=== PATIENT | male | born 1985 | race Caucasian/White ===

== ENCOUNTER 2024-09-15 11:04 | Emergency (ER) | payer OTHER, SELFPAY ==
[2024-09-15 11:06] VITALS: BP 127/80; PULSE 87; RESP 18; TEMP 36.6; O2SAT 100; BMI 26.5
--- NOTE | 2024-09-15 11:13 | ED_ITS ---
HPI - General Adult General Chief complaint: Abdominal Pain Stated complaint: Abdominal pain Time Seen by Provider: 09/15/24 11:05 History of Present Illness HPI narrative: Patient presents to the emergency department complaining of right sided abdominal pain. This started with some fatigue last night. Patient has been working a lot recently and is unsure if he is really sore or if there is another issue. No issues with bowel movements or urinating. Denies any history of any abdominal surgery. 39-year-old man presenting to the emergency department with concern of abdominal pain. Does physical work installing fences, horse paddocks. Yesterday evening was rather fatigued and then began to be achy all over. Thought maybe was related to more intense work has been doing lately. Than this morning increasing abdominal pain. Became rather severe. Was apparently restless in pain. There was some nausea but has not vomited. Indicates by gesture pain in the right upper abdomen but does admit that it was somewhat generalized. Denies constipation noting ?that is never been a problem with me ?with continuing what I take to understand at a minimum daily bowel movements. Pain then seemed to go into his chest. He was crying and screaming with the abdominal pain. Spouse thought maybe he was panicking to some degree in gave half of 1 of her lorazepam tablets. Since arrival to the emergency department things have settled down. Does not report any difficulty with urinating or hematuria. Did have a normal urine out this morning. No fevers been measured. Hit thought that maybe he was developing ?the flu? last night. Related Data Home Medications ?Medication ?Instructions ?Recorded ?Confirmed No Known Home Medications 09/15/24 09/15/24 Allergies Allergy/AdvReac Type Severity Reaction Status Date / Time No Known Drug Allergies Allergy Verified 09/15/24 11:12 Review of Systems Status of ROS: Reports: 6 or more systems reviewed and unremarkable except as noted in History and below Exam Narrative: Exam Narrative: Lying flat on bed. NAD. Easily conversant. Skin is warm and dry. Cheeks are flushed as if exposure/when burn. Skin otherwise warm and dry. Heart in regular rate and rhythm. Lungs appear to be clear per Oropharynx is sticky. Abdomen is soft and nontender. Active bowel sounds. Extremities are well perfused. Is without edema. Const: Vital Signs, click to edit/add: Vital Signs - 24 hr 09/15/24 14:35 Temperature 97.7 F Pulse Rate [Right Pulse Oximeter] 101 H Respiratory Rate 20 Blood Pressure [Ri ght Upper Arm] 146/89 H Pulse Oximetry 98 Documenting provider has reviewed patient's vital signs: yes Course Vital Signs Vital signs: Initial Vital Signs Temperature 97.9 F 09/15/24 11:06 Temperature Source Temporal Artery Scan 09/15/24 11:06 Pulse Rate 87 09/15/24 11:06 Pulse Rhythm Regular 09/15/24 11:06 Pulse Strength 3+ Normal 09/15/24 11:06 Respiratory Rate 18 09/15/24 11:06 Blood Pressure 127/80 09/15/24 11:06 Blood Pressure Mean 95 09/15/24 11:06 Blood Pressure Position Sitting 09/15/24 11:06 Pulse Oximetry 100 09/15/24 11:06 Oxygen Delivery Method Room Air 09/15/24 11:06 Vital Signs Temperature 97.9 F 09/15/24 11:06 Pulse Rate 87 09/15/24 11:06 Respiratory Rate 18 09/15/24 11:06 Blood Pressure 127/80 09/15/24 11:06 Pulse Oximetry 100 09/15/24 11:06 Oxygen Delivery Method Room Air 09/15/24 11:06 Temperature 97.7 F 09/15/24 14:35 Pulse Rate 101 H 09/15/24 14:35 Respiratory Rate 20 09/15/24 14:35 Blood Pressure 146/89 H 09/15/24 14:35 Pulse Oximetry 98 09/15/24 14:35 Oxygen Delivery Method Room Air 09/15/24 11:06 Medical Decision Making MDM Narrative Medical decision making narrative: I wonder if this might have been more generalized gas pain. He keeps indicating the right upper quadrant and while he would be unlikely to have gallbladder disease certainly possible. Could have rolled a stone I suppose. Discussed just checking for what I suspect is an underlying influenza-like illness as well. Now with a benign belly. Spouse indicates concern and would like further lab work which I am not disagreement with. Perhaps this will direct further imaging. Does not feel he needs any intervention for pain or nausea. Transaminases do return elevated. With location of pain is described did request limited ultrasound. Normal white count. And normal lipase I also go to discuss with him alcohol consumption. Did have a couple of liquor drinks last night. I suppose this could be contributing to the transaminase elevation. Initial conversation during exam with produce production team member noting dilated common bile duct of 8 mm Radiology over-read below INDICATION: Right upper quadrant abdomen pain. Elevated transaminases. TECHNIQUE: Ultrasound abdomen limited. Sonographic images of the right upper quadrant were obtained using curtis-scale and color Doppler images. COMPARISON: None. FINDINGS: Liver: The liver is normal in size (15 cm) with mild heterogeneous parenchyma. There is studies [place] appearance with diffuse periportal increased echogenicity, which can be seen with periportal edema. Echogenicity. No concerning intrahepatic mass. Mild prominence of the intrahepatic biliary ducts are seen. Hepatopetal flow of main portal vein is present. Gallbladder: Sludge is identified within the gallbladder. No pericholecystic fluid or edematous wall thickening. Gallbladder wall thickness measures 2 millimeter. There is dilatation of common bile duct measuring 8 mm. Pretty`s sign is negative at the time of ultrasonographic exam. Pancreas: Pancreas is partially visualized secondary to bowel gas. Pancreatic tail is obscured. No pancreatic duct dilatation no concerning mass. Vasculature: Patent IVC. Included abdominal aorta is of normal caliber. Right kidney measures 11.3 x 6.6 centimeter. Preserved vascularity. No hydronephrosis. IMPRESSION: 1. No findings of acute cholecystitis. Dilatation of common bile duct and prominence of the intrahepatic bile duct, correlate with liver function tests to exclude distal biliary obstruction. For continued clinical concern, consider further assessment with MRCP. 2. Slightly heterogeneous liver parenchyma with starry my appearance and diffuse periportal edema, findings are nonspecific and can be seen with hepatitis, volume overload, diffuse neoplastic infiltration, fasting liver amongst other etiology. Did discuss with General surgery considering size the common bile duct recommending MRCP. On reexamination is not having localizing pain maybe a little uncomfortable around the right upper quadrant after the ultrasound I think. Rechecking vitals. Discussed all findings with Mr. Hernandez and abimbola valdes. Preference is to go home rather than wait a few hours for MRCP until MRI is available at this point. Pending MRCP might need CT imaging See patient discharge plan for further discussion As discussed, we do not know the significance of the findings in your labs or the dilatation of your common bile duct right now. Please return for localizing and marked increase in abdominal pain, associated fever. In lieu of further imaging/evaluation today, please follow-up with your primary care provider, ideally within the coming week, to pursue these findings further. Prescribing Zofran for nausea from [facility]. Focus on hydration. Lab Data Lab results reviewed: Yes I reviewed the patient's lab results Labs: Lab Results 09/15/24 09/15/24 09/15/24 Range/Units 11:44 11:45 11:52 WBC 10.78 (4.50-11.00) K/uL RBC 4.74 (4.30-5.90) m/uL Hgb 13.7 (13.5-17.5) gm/dL Hct 41.7 (37.0-53.0) % MCV 88 (80-100) fL MCH 29 (26-34) pg MCHC 33 (32-36) gm/dL RDW Coeff of Krystina 12.4 (11.5-15.5) % Plt Count 224 (140-440) K/uL Neut % (Auto) 85.0 H (42.0-72.0) % Lymph % (Auto) 6.0 L (20-44) % Granite % (Auto) 8.1 (0.0-11.0) % Eos % (Auto) 0.6 (0.0-7.0) % Baso % (Auto) 0.2 (0.0-3.0) % Neut # (Auto) 9.20 H (1.7-7.0) K/uL Lymph # (Auto) 0.60 L (0.90-2.90) K/uL Granite # (Auto) 0.90 (0.00-0.90) K/UL Eos # (Auto) 0.07 (0.00-0.50) K/uL Baso # (Auto) 0.02 (0.00-0.30) K/uL Abs Immat Gran (auto) 0.01 (0.00-0.30) K/uL Imm/Tot Granulo (auto) 0.1 % Sodium 140 (135-149) mmol/L Potassium 3.8 (3.6-5.1) mmol/L Chloride 106 (96-114) mmol/L Carbon Dioxide 26 (20-32) mmol/L Anion Gap 8 (7-15) mEq/L BUN 26 H (5-24) mg/dL Creatinine 0.8 (0.5-1.5) mg/dL Estimated Creat Clear 125.47 Estimated GFR 114 ml/min Glucose 87 (60-115) mg/dL Calcium 9.2 (8.4-10.6) mg/dL Total Bilirubin 0.4 (0.1-1.5) mg/dL Direct Bilirubin 0.2 (0.0-0.5) mg/dL AST 92 H (12-35) U/L ALT 52 H (4-50) U/L Alkaline Phosphatase 94 (40-150) U/L Troponin I < 0.01 L (0.01-0.04) ng/mL Total Protein 6.6 (6.0-8.3) g/dL Albumin 4.5 (3.3-5.0) g/dL Lipase 74 (23-300) U/L Urine Color Yellow (Yellow) Urine Appearance Clear (Clear) Urine pH 7.0 (5.0-8.5) Ur Specific Hilbert 1.015 (1.000-1.030) Urine Protein Trace A (Negative) Urine Glucose (UA) Negative (Negative) Urine Ketones Trace A (Negative) Urine Blood Negative (Negative) Urine Nitrite Negative (Negative) Urine Bilirubin Negative (Negative) Urine Urobilinogen 0.2 (0.2-1.0) Ur Leukocyte Esterase Negative (Negative) Urine RBC 0-2 (0-2) Urine WBC 0-2 (0-5) Ur Squamous Epith Cells None (None-Few) Urine Bacteria None (None) SARS-CoV-2 (PCR) Negative SARS-CoV-2 (Negative) Influenza Type A (PCR) Negative PCR FLU A (Negative) Influenza Type B (PCR) Negative PCR FLU B (Negative) RSV (PCR) Negative PCR RSV (Negative) Lab Acknowledgement 09/15/24 Range/Units 12:39 WBC (4.50-11.00) K/uL RBC (4.30-5.90) m/uL Hgb (13.5-17.5) gm/dL Hct (37.0-53.0) % MCV (80-100) fL MCH (26-34) pg MCHC (32-36) gm/dL RDW Coeff of Krystina (11.5-15.5) % Plt Count (140-440) K/uL Neut % (Auto) (42.0-72.0) % Lymph % (Auto) (20-44) % Granite % (Auto) (0.0-11.0) % Eos % (Auto) (0.0-7.0) % Baso % (Auto) (0.0-3.0) % Neut # (Auto) (1.7-7.0) K/uL Lymph # (Auto) (0.90-2.90) K/uL Granite # (Auto) (0.00-0.90) K/UL Eos # (Auto) (0.00-0.50) K/uL Baso # (Auto) (0.00-0.30) K/uL Abs Immat Gran (auto) (0.00-0.30) K/uL Imm/Tot Granulo (auto) % Sodium (135-149) mmol/L Potassium (3.6-5.1) mmol/L Chloride (96-114) mmol/L Carbon Dioxide (20-32) mmol/L Anion Gap (7-15) mEq/L BUN (5-24) mg/dL Creatinine (0.5-1.5) mg/dL Estimated Creat Clear Estimated GFR ml/min Glucose (60-115) mg/dL Calcium (8.4-10.6) mg/dL Total Bilirubin (0.1-1.5) mg/dL Direct Bilirubin (0.0-0.5) mg/dL AST (12-35) U/L ALT (4-50) U/L Alkaline Phosphatase (40-150) U/L Troponin I (0.01-0.04) ng/mL Total Protein (6.0-8.3) g/dL Albumin (3.3-5.0) g/dL Lipase (23-300) U/L Urine Color (Yellow) Urine Appearance (Clear) Urine pH (5.0-8.5) Ur Specific Hilbert (1.000-1.030) Urine Protein (Negative) Urine Glucose (UA) (Negative) Urine Ketones (Negative) Urine Blood (Negative) Urine Nitrite (Negative) Urine Bilirubin (Negative) Urine Urobilinogen (0.2-1.0) Ur Leukocyte Esterase (Negative) Urine RBC (0-2) Urine WBC (0-5) Ur Squamous Epith Cells (None-Few) Urine Bacteria (None) SARS-CoV-2 (PCR) (Negative) Influenza Type A (PCR) (Negative) Influenza Type B (PCR) (Negative) RSV (PCR) (Negative) Lab Acknowledgement Test Added Discharge Plan Discharge Clinical Impression: Malaise and fatigue, Abdominal pain, Common bile duct dilatation Patient Disposition: Home w/ Parent or Adult Condition: Stable Additional Instructions: As discussed, we do not know the significance of the findings in your labs or the dilatation of your common bile duct right now. Please return for localizing and marked increase in abdominal pain, associated fever. In lieu of further imaging/evaluation today, please follow-up with your primary care provider, ideally within the coming week, to pursue these findings further. Prescribing Zofran for nausea from [facility]. Focus on hydration. Prescriptions: No Action No Known Home Medications Follow Up/Referrals: Provider,Not a Local [Primary Care Provider] - Stand Alone Forms: [facility] [employer] Info Instructions
[2024-09-15 11:58] LABS: Appearance Urine Clear (Clear); Bilirubin Urine Negative (Negative); Blood Urine Negative (Negative); Color Urine Yellow (Yellow); Glucose Urine Negative (Negative); Ketones Urine Trace (Negative); Leukocyte Esterase Urine Negative (Negative); Nitrite Urine Negative (Negative); Protein Urine Trace (Negative); Specific Gravity Urine 1.015 (1.000-1.030); Urobilinogen Urine 0.2 (0.2-1.0)
[2024-09-15 12:07] LABS: RBC Urine 0-2 (0-2); WBC Urine 0-2 (0-5)
[2024-09-15 12:09] LABS: Basophils Absolute Auto 0.02 K/uL (0.00-0.30); Basophils Percent Auto 0.2 % (0.0-3.0); Eosinophils Absolute Auto 0.07 K/uL (0.00-0.50); Eosinophils Percent Auto 0.6 % (0.0-7.0); Hematocrit 41.7 % (37.0-53.0); Hemoglobin* 13.7 gm/dL (13.5-17.5); Immature Granulocytes Abs Auto 0.01 K/uL (0.00-0.30); Immature Granulocytes Pct Auto 0.1 %; Mean Corpuscular HGB Conc 33 gm/dL (32-36); Mean Corpuscular Hemoglobin 29 pg (26-34); Mean Corpuscular Volume 88 fL (80-100); Monocytes Percent Auto 8.1 % (0.0-11.0); Platelet Count* 224 K/uL (140-440); RDW Coefficient of Variation % 12.4 % (11.5-15.5); Red Blood Count 4.74 m/uL (4.30-5.90); White Blood Count* 10.78 K/uL (4.50-11.00)
[2024-09-15 12:14] LABS: Slide Review Reflex No
[2024-09-15 12:15] LABS: Albumin* 4.5 g/dL (3.3-5.0); Chloride* 106 mmol/L (96-114)
[2024-09-15 12:16] LABS: Potassium* 3.8 mmol/L (3.6-5.1); Sodium* 140 mmol/L (135-149)
[2024-09-15 12:18] LABS: Alkaline Phosphatase* 94 U/L (40-150); Anion Gap 8 mEq/L (7-15); Aspartate Amino Transferase* 92 U/L (12-35); Bilirubin Direct* 0.2 mg/dL (0.0-0.5); Bilirubin Total* 0.4 mg/dL (0.1-1.5); Blood Urea Nitrogen* 26 mg/dL (5-24); Carbon Dioxide* 26 mmol/L (20-32); Creatinine* 0.8 mg/dL (0.5-1.5); Est. Creatinine Clearance* 125.47; Estimated Glomerular Filt Rate 114 ml/min; Total Protein* 6.6 g/dL (6.0-8.3)
[2024-09-15 12:19] LABS: Alanine Aminotransferase* 52 U/L (4-50); Calcium* 9.2 mg/dL (8.4-10.6); Glucose* 87 mg/dL (60-115)
[2024-09-15 12:32] LABS: Troponin I* < 0.01 ng/mL (0.01-0.04)
--- NOTE | 2024-09-15 12:34 | CRLHL7_ITS ---
For Patients: As a result of the Century Cures Act, medical imaging exams and procedure reports are released immediately into your electronic medical record. You may view this report before your referring provider. If you have questions, please contact your health care provider. INDICATION: Right upper quadrant abdomen pain. Elevated transaminases. TECHNIQUE: Ultrasound abdomen limited. Sonographic images of the right upper quadrant were obtained using cutris-scale and color Doppler images. COMPARISON: None. FINDINGS: Liver: The liver is normal in size (15 cm) with mild heterogeneous parenchyma. There is studies [place] appearance with diffuse periportal increased echogenicity, which can be seen with periportal edema. Echogenicity. No concerning intrahepatic mass. Mild prominence of the intrahepatic biliary ducts are seen. Hepatopetal flow of main portal vein is present. Gallbladder: Sludge is identified within the gallbladder. No pericholecystic fluid or edematous wall thickening. Gallbladder wall thickness measures 2 millimeter. There is dilatation of common bile duct measuring 8 mm. Pretty`s sign is negative at the time of ultrasonographic exam. Pancreas: Pancreas is partially visualized secondary to bowel gas. Pancreatic tail is obscured. No pancreatic duct dilatation no concerning mass. Vasculature: Patent IVC. Included abdominal aorta is of normal caliber. Right kidney measures 11.3 x 6.6 centimeter. Preserved vascularity. No hydronephrosis. IMPRESSION: 1. No findings of acute cholecystitis. Dilatation of common bile duct and prominence of the intrahepatic bile duct, correlate with liver function tests to exclude distal biliary obstruction. For continued clinical concern, consider further assessment with MRCP. 2. Slightly heterogeneous liver parenchyma with starry my appearance and diffuse periportal edema, findings are nonspecific and can be seen with hepatitis, volume overload, diffuse neoplastic infiltration, fasting liver amongst other etiology. Dictated by Lázaro Singleton MD @ 09/15/2024 1:40:44 PM (Electronically Signed)
[2024-09-15 12:35] LABS: PCR FLU A Negative PCR FLU A (Negative); PCR FLU B Negative PCR FLU B (Negative); PCR RSV Negative PCR RSV (Negative); SARS PCR* Negative SARS-CoV-2 (Negative)
[2024-09-15 12:52] LABS: Lipase* 74 U/L (23-300)
[2024-09-15 14:35] VITALS: BP 146/89; PULSE 101; RESP 20; TEMP 36.5; O2SAT 98
== END 2024-09-15 14:52 | disposition home or self-care (01) ==
PROVIDERS: Emergency Provider Family Medicine
DX: K83.8 Other specified diseases of biliary tract (principal); R10.9 Unspecified abdominal pain; R53.83 Other fatigue
CPT/HCPCS: 36415; 76705; 80048; 80076; 81001; 83690; 84484; 85025; 87631; 99284